=== PATIENT | female | born 1970 | race Caucasian/White ===

== ENCOUNTER → 2020-11-05 11:10 | Outpatient (CLI) | payer BC ==
[2020-11-05 11:46] LABS: BASOPHILS 1.8 % (0-2); EOSINOPHILS 2.1 % (0-7); HEMATOCRIT 36.5 % (36.0-48.0); HEMOGLOBIN 11.7 g/dL (12-16); LYMPHOCYTES 25.7 % (15-50); MCH 28.7 pg (26.0-34.0); MCHC 31.9 g/dL (31.0-37.0); MCV 89.9 fL (80.0-100.0); MONOCYTES 8.6 % (2-11); NEUTROPHILS 61.8 % (40-80); PLATELET COUNT 293 10x3/uL (130-400); RBC 4.06 10x6/uL (4.00-5.40); RDW 15.1 % (11.5-14.5); WBC 6.6 10x3/uL (4.8-10.8)
[2020-11-05 12:13] LABS: ALBUMIN 3.8 g/dL (3.4-5.0); ANION GAP 14.3 mmol/L (8-16); BILIRUBIN - TOTAL 0.26 mg/dL (0.2-1.3); CALCIUM 9.7 mg/dL (8.5-10.1); CARBON DIOXIDE 23.3 mmol/L (21.0-32.0); CREATININE - SERUM 0.9 mg/dL (0.6-1.3); POTASSIUM - SERUM 3.6 mmol/L (3.5-5.1); PROTEIN - SERUM 7.3 g/dL (6.4-8.2)
== END | disposition home or self-care (01) ==
LOC: D.LAB 11:10
PROVIDERS: ATTEND Psychiatry & Neurology Neurology
DX: R56.9 Unspecified convulsions (principal)